=== PATIENT | female | born 1995 | race Caucasian/White ===

== ENCOUNTER 2019-07-25 09:26 | Emergency (ER) | payer OTHER ==
[~2019-07-25] VITALS: Ht 157.5 cm; Wt 65.8 kg
[2019-07-25 09:30] VITALS: BP 132/81
[2019-07-25 10:05] LABS: INFLUENZA A ANTIGEN Negative (Negative); INFLUENZA B ANTIGEN Negative (Negative)
[2019-07-25] MEDS ORDERED: KEFLEX500 M1 PO (10:10)
== END 2019-07-25 10:16 | disposition home or self-care (01) ==
LOC: M.ERS 09:26
PROVIDERS: Emergency Medicine Emergency Medical Services
DX: J02.0 Streptococcal pharyngitis (principal); F17.210 Nicotine dependence, cigarettes, uncomplicated